=== PATIENT | male | born 1975 | race American Indian/Alaskan Native ===

== ENCOUNTER 2022-02-23 17:44 | Emergency (ER) | payer OTHER ==
[~2022-02-23] VITALS: Ht 160 cm; Wt 67.6 kg
[2022-02-23] MEDS ORDERED: NORFLEX100MG PO (20:38)
[2022-02-23] MEDS ORDERED: KETO10TA2 PO (20:38)
[2022-03-18] MEDS ORDERED: ACETAMINOPHEN650 M2 (18:05)
== END 2022-02-23 21:10 | disposition home or self-care (01) ==
LOC: ER 17:44
DX: R07.89 Other chest pain (principal); Z20.822 Contact with and (suspected) exposure to COVID-19; M54.9 Dorsalgia, unspecified

== ENCOUNTER 2023-01-23 08:53 | Emergency (ER) | payer OTHER ==
[~2023-01-23] VITALS: Ht 160 cm; Wt 67.1 kg
[~2023-01-23 08:53] MED LIST: ACETAMINOPHEN650 M2; KETO10TA2 PO; NORFLEX100MG PO
== END 2023-01-23 16:59 | disposition home or self-care (01) ==
LOC: ER 08:53
DX: K29.70 Gastritis, unspecified, without bleeding (principal)